=== PATIENT | female | born 1935 | race Caucasian/White ===

== ENCOUNTER 2021-10-17 11:26 | Inpatient (IN) | payer MEDICARE, OTHER, MEDICAID ==
[2021-10-17] MEDS ORDERED: Albuterol 0.083% 2.5 MG/3 ML Neb Soln INH ONE (12:30)
[2021-10-17] MEDS ORDERED: Ondansetron 4 MG Tab.DIS PO PRN (13:47)
[2021-10-17] MEDS ORDERED: Albuterol 8 GM Inhaler INH PRN (13:47)
[2021-10-17] MEDS: Enoxaparin 40 MG/0.4 ML Syringe SUBCUT SCH (14:08)
[2021-10-17] MEDS ORDERED: cefTRIAXone 1 GM in Sodium Chloride 0.9% 50 ML IV SCH (14:45)
[2021-10-17] MEDS: cefTRIAXone 1 GM Vial IVPUSH SCH (15:00)
[2021-10-17] MEDS: tiZANidine 4 MG Tab PO PRN (16:25)
[2021-10-17] MEDS: Acetaminophen 500 MG Tab PO PRN ×2 (16:26→20:43)
[2021-10-17] MEDS: Gabapentin 100 MG Cap PO SCH ×2 (16:38→20:30)
[2021-10-17] MEDS: Albuterol/Ipratropium 3.0-0.5 MG/3 ML Neb Soln NEB PRN (16:38)
[2021-10-17] MEDS: Pantoprazole 40 MG Tab.CR PO SCH (17:10)
[2021-10-17] MEDS: Doxycycline 100 MG in Sodium Chloride 0.9% 100 ML IV SCH (17:10)
[2021-10-17] MEDS: Carvedilol 6.25 MG Tab PO SCH (17:10)
[2021-10-17] MEDS: Sodium Chloride 0.9% 10 ML Syringe FLUSH PRN (17:10)
[2021-10-17] MEDS: Aspirin 81 MG Tab.EC PO SCH (20:26)
[2021-10-17] MEDS: Melatonin 3 MG Tab PO SCH (20:26)
[2021-10-17] MEDS: Montelukast 10 MG Tab PO SCH (20:27)
[2021-10-17] MEDS: Carboxymethylcellulose Sodium 0.5% Ophth Soln 15 ML Bottle EYEBOTH SCH (20:27)
[2021-10-17] MEDS: Arformoterol 15 MCG/2 ML Neb Soln INH SCH (20:34)
[2021-10-17] MEDS: Budesonide 0.5 MG/2 ML Neb Susp INH SCH (20:45)
[2021-10-18] MEDS: Albuterol/Ipratropium 3.0-0.5 MG/3 ML Neb Soln NEB PRN ×3 (04:20→18:27)
[2021-10-18] MEDS: Arformoterol 15 MCG/2 ML Neb Soln INH SCH ×3 (05:11→20:57)
[2021-10-18] MEDS: Sodium Chloride 0.9% 10 ML Syringe FLUSH PRN ×6 (05:12→20:57)
[2021-10-18] MEDS: Doxycycline 100 MG in Sodium Chloride 0.9% 100 ML IV SCH ×2 (05:12→19:57)
[2021-10-18] MEDS: Budesonide 0.5 MG/2 ML Neb Susp INH SCH ×3 (05:20→20:58)
[2021-10-18] MEDS: Isosorbide Mononitrate 30 MG Tab.ER PO SCH (08:10)
[2021-10-18] MEDS: Ferrous Sulfate 325 MG Tab PO SCH (08:11)
[2021-10-18] MEDS: Furosemide 20 MG Tab PO SCH (08:11)
[2021-10-18] MEDS: Carvedilol 6.25 MG Tab PO SCH ×2 (08:11→18:27)
[2021-10-18] MEDS: Potassium Chloride 10 MEQ Tab.ER PO SCH (08:12)
[2021-10-18] MEDS: amLODIPine 5 MG Tab PO SCH (08:12)
[2021-10-18] MEDS: Cholecalciferol (Vitamin D3) 25 MCG Tab PO SCH (08:12)
[2021-10-18] MEDS: Lactobacillus Rhamnosus GG (Probiotic) Cap PO SCH (08:13)
[2021-10-18] MEDS: Carboxymethylcellulose Sodium 0.5% Ophth Soln 15 ML Bottle EYEBOTH SCH ×2 (08:13→20:59)
[2021-10-18] MEDS: Ascorbic Acid 500 MG Tab PO SCH (08:13)
[2021-10-18] MEDS: Sertraline 25 MG Tab PO SCH (08:14)
[2021-10-18] MEDS: Tiotropium Bromide 4 GM Inhalation Spray (2.5mcg/1 dose; 10 doses) INH SCH (08:14)
[2021-10-18] MEDS: Docusate Sodium 100 MG Cap PO SCH (08:15)
[2021-10-18] MEDS: Fluticasone NASAL Spray 16 GM Bottle NASBOTH SCH (08:15)
[2021-10-18] MEDS: Meloxicam 7.5 MG Tab PO SCH (08:16)
[2021-10-18] MEDS: Lisinopril 20 MG Tab PO SCH (08:16)
[2021-10-18] MEDS: Gabapentin 100 MG Cap PO SCH ×3 (08:20→21:01)
[2021-10-18] MEDS: Polyethylene Glycol 3350 Powder 17 GM Packet PO SCH (08:20)
[2021-10-18] MEDS: Acetaminophen 500 MG Tab PO PRN (08:41)
[2021-10-18] MEDS: Pantoprazole 40 MG Tab.CR PO SCH ×2 (11:59→18:27)
[2021-10-18] MEDS: Enoxaparin 40 MG/0.4 ML Syringe SUBCUT SCH (13:32)
[2021-10-18] MEDS: tiZANidine 4 MG Tab PO PRN (15:00)
[2021-10-18] MEDS: cefTRIAXone 1 GM Vial IVPUSH SCH (15:03)
[2021-10-18] MEDS: Aspirin 81 MG Tab.EC PO SCH (20:58)
[2021-10-18] MEDS: Melatonin 3 MG Tab PO SCH (20:58)
[2021-10-18] MEDS: Montelukast 10 MG Tab PO SCH (20:59)
[2021-10-19] MEDS: Albuterol/Ipratropium 3.0-0.5 MG/3 ML Neb Soln NEB PRN ×2 (04:04→12:02)
[2021-10-19] MEDS: Doxycycline 100 MG in Sodium Chloride 0.9% 100 ML IV SCH ×2 (05:39→17:38)
[2021-10-19] MEDS: Sodium Chloride 0.9% 10 ML Syringe FLUSH PRN ×3 (05:45→14:55)
[2021-10-19] MEDS: Arformoterol 15 MCG/2 ML Neb Soln INH SCH ×2 (06:04→20:25)
[2021-10-19] MEDS: Budesonide 0.5 MG/2 ML Neb Susp INH SCH ×2 (06:04→20:27)
[2021-10-19] MEDS: Polyethylene Glycol 3350 Powder 17 GM Packet PO SCH (08:39)
[2021-10-19] MEDS: Cholecalciferol (Vitamin D3) 25 MCG Tab PO SCH (08:40)
[2021-10-19] MEDS: Gabapentin 100 MG Cap PO SCH ×3 (08:40→20:35)
[2021-10-19] MEDS: Sertraline 25 MG Tab PO SCH (08:40)
[2021-10-19] MEDS: Potassium Chloride 10 MEQ Tab.ER PO SCH (08:41)
[2021-10-19] MEDS: Fluticasone NASAL Spray 16 GM Bottle NASBOTH SCH (08:41)
[2021-10-19] MEDS: Ferrous Sulfate 325 MG Tab PO SCH (08:41)
[2021-10-19] MEDS: Ascorbic Acid 500 MG Tab PO SCH (08:41)
[2021-10-19] MEDS: Meloxicam 7.5 MG Tab PO SCH (08:41)
[2021-10-19] MEDS: Lactobacillus Rhamnosus GG (Probiotic) Cap PO SCH (08:41)
[2021-10-19] MEDS: Furosemide 20 MG Tab PO SCH (08:41)
[2021-10-19] MEDS: Docusate Sodium 100 MG Cap PO SCH (08:41)
[2021-10-19] MEDS: Tiotropium Bromide 4 GM Inhalation Spray (2.5mcg/1 dose; 10 doses) INH SCH (08:41)
[2021-10-19] MEDS: Carboxymethylcellulose Sodium 0.5% Ophth Soln 15 ML Bottle EYEBOTH SCH ×2 (08:42→20:28)
[2021-10-19] MEDS: Carvedilol 6.25 MG Tab PO SCH ×2 (08:43→17:38)
[2021-10-19] MEDS: Isosorbide Mononitrate 30 MG Tab.ER PO SCH (08:44)
[2021-10-19] MEDS: amLODIPine 5 MG Tab PO SCH (08:44)
[2021-10-19] MEDS: Lisinopril 20 MG Tab PO SCH (08:44)
[2021-10-19] MEDS: Pantoprazole 40 MG Tab.CR PO SCH ×2 (12:02→17:38)
[2021-10-19] MEDS: cefTRIAXone 1 GM Vial IVPUSH SCH (14:55)
[2021-10-19] MEDS: Enoxaparin 40 MG/0.4 ML Syringe SUBCUT SCH (14:55)
[2021-10-19] MEDS: Melatonin 3 MG Tab PO SCH (20:26)
[2021-10-19] MEDS: Aspirin 81 MG Tab.EC PO SCH (20:26)
[2021-10-19] MEDS: Montelukast 10 MG Tab PO SCH (20:29)
[2021-10-20] MEDS: Albuterol/Ipratropium 3.0-0.5 MG/3 ML Neb Soln NEB PRN ×3 (02:14→18:18)
[2021-10-20] MEDS: Doxycycline 100 MG in Sodium Chloride 0.9% 100 ML IV SCH ×2 (06:39→17:24)
[2021-10-20] MEDS: Budesonide 0.5 MG/2 ML Neb Susp INH SCH ×2 (06:39→21:14)
[2021-10-20] MEDS: Arformoterol 15 MCG/2 ML Neb Soln INH SCH ×2 (06:39→21:14)
[2021-10-20] MEDS: Carvedilol 6.25 MG Tab PO SCH ×2 (07:56→17:22)
[2021-10-20] MEDS: Furosemide 20 MG Tab PO SCH (07:56)
[2021-10-20] MEDS: Gabapentin 100 MG Cap PO SCH ×3 (07:57→21:18)
[2021-10-20] MEDS: Sodium Chloride 0.9% 10 ML Syringe FLUSH PRN ×3 (08:02→17:29)
[2021-10-20] MEDS: Lactobacillus Rhamnosus GG (Probiotic) Cap PO SCH (08:10)
[2021-10-20] MEDS: Ferrous Sulfate 325 MG Tab PO SCH (08:10)
[2021-10-20] MEDS: Docusate Sodium 100 MG Cap PO SCH (08:10)
[2021-10-20] MEDS: Fluticasone NASAL Spray 16 GM Bottle NASBOTH SCH (08:10)
[2021-10-20] MEDS: Potassium Chloride 10 MEQ Tab.ER PO SCH (08:11)
[2021-10-20] MEDS: Isosorbide Mononitrate 30 MG Tab.ER PO SCH (08:11)
[2021-10-20] MEDS: amLODIPine 5 MG Tab PO SCH (08:12)
[2021-10-20] MEDS: Meloxicam 7.5 MG Tab PO SCH (08:12)
[2021-10-20] MEDS: Lisinopril 20 MG Tab PO SCH (08:13)
[2021-10-20] MEDS: Carboxymethylcellulose Sodium 0.5% Ophth Soln 15 ML Bottle EYEBOTH SCH ×2 (08:13→21:16)
[2021-10-20] MEDS: Ascorbic Acid 500 MG Tab PO SCH (08:14)
[2021-10-20] MEDS: Tiotropium Bromide 4 GM Inhalation Spray (2.5mcg/1 dose; 10 doses) INH SCH (08:14)
[2021-10-20] MEDS: Sertraline 25 MG Tab PO SCH (08:15)
[2021-10-20] MEDS: Cholecalciferol (Vitamin D3) 25 MCG Tab PO SCH (08:15)
[2021-10-20] MEDS ORDERED: amLODIPine 10 MG Tab PO SCH (09:00)
[2021-10-20] MEDS: Polyethylene Glycol 3350 Powder 17 GM Packet PO SCH (11:00)
[2021-10-20] MEDS: Pantoprazole 40 MG Tab.CR PO SCH ×2 (11:28→17:22)
[2021-10-20] MEDS: cefTRIAXone 1 GM Vial IVPUSH SCH (14:19)
[2021-10-20] MEDS: Enoxaparin 40 MG/0.4 ML Syringe SUBCUT SCH (14:19)
[2021-10-20] MEDS: Montelukast 10 MG Tab PO SCH (21:15)
[2021-10-20] MEDS: Aspirin 81 MG Tab.EC PO SCH (21:15)
[2021-10-20] MEDS: Melatonin 3 MG Tab PO SCH (21:15)
[2021-10-21] MEDS: Albuterol/Ipratropium 3.0-0.5 MG/3 ML Neb Soln NEB PRN ×2 (04:19→17:41)
[2021-10-21] MEDS: Sodium Chloride 0.9% 10 ML Syringe FLUSH PRN (05:50)
[2021-10-21] MEDS: Doxycycline 100 MG in Sodium Chloride 0.9% 100 ML IV SCH (05:51)
[2021-10-21] MEDS: Budesonide 0.5 MG/2 ML Neb Susp INH SCH ×2 (06:22→20:07)
[2021-10-21] MEDS: Arformoterol 15 MCG/2 ML Neb Soln INH SCH ×2 (06:22→19:59)
[2021-10-21] MEDS: Gabapentin 100 MG Cap PO SCH ×3 (07:57→20:04)
[2021-10-21] MEDS: Furosemide 20 MG Tab PO SCH (07:58)
[2021-10-21] MEDS: Carvedilol 6.25 MG Tab PO SCH ×2 (07:59→17:49)
[2021-10-21] MEDS: Docusate Sodium 100 MG Cap PO SCH (08:00)
[2021-10-21] MEDS: Ferrous Sulfate 325 MG Tab PO SCH (08:00)
[2021-10-21] MEDS: Lisinopril 20 MG Tab PO SCH (08:00)
[2021-10-21] MEDS: Meloxicam 7.5 MG Tab PO SCH (08:01)
[2021-10-21] MEDS: Potassium Chloride 10 MEQ Tab.ER PO SCH (08:02)
[2021-10-21] MEDS: Isosorbide Mononitrate 30 MG Tab.ER PO SCH (08:02)
[2021-10-21] MEDS: Fluticasone NASAL Spray 16 GM Bottle NASBOTH SCH (08:03)
[2021-10-21] MEDS: Lactobacillus Rhamnosus GG (Probiotic) Cap PO SCH (08:04)
[2021-10-21] MEDS: Tiotropium Bromide 4 GM Inhalation Spray (2.5mcg/1 dose; 10 doses) INH SCH (08:07)
[2021-10-21] MEDS: Carboxymethylcellulose Sodium 0.5% Ophth Soln 15 ML Bottle EYEBOTH SCH ×2 (08:08→20:06)
[2021-10-21] MEDS: Ascorbic Acid 500 MG Tab PO SCH (08:08)
[2021-10-21] MEDS: Cholecalciferol (Vitamin D3) 25 MCG Tab PO SCH (08:10)
[2021-10-21] MEDS: Sertraline 25 MG Tab PO SCH (08:11)
[2021-10-21] MEDS: Polyethylene Glycol 3350 Powder 17 GM Packet PO SCH ×2 (08:27→08:47)
[2021-10-21] MEDS: amLODIPine 5 MG Tab PO SCH (08:42)
[2021-10-21] MEDS: Pantoprazole 40 MG Tab.CR PO SCH ×2 (13:32→17:46)
[2021-10-21] MEDS: Enoxaparin 40 MG/0.4 ML Syringe SUBCUT SCH (13:42)
[2021-10-21] MEDS: Montelukast 10 MG Tab PO SCH (20:02)
[2021-10-21] MEDS: Melatonin 3 MG Tab PO SCH (20:03)
[2021-10-21] MEDS: Acetaminophen 500 MG Tab PO PRN (20:04)
[2021-10-21] MEDS: Cefdinir 300 MG Cap PO SCH (20:05)
[2021-10-21] MEDS: Aspirin 81 MG Tab.EC PO SCH (20:11)
[2021-10-21] MEDS: Doxycycline 100 MG Tab PO SCH (20:12)
[2021-10-22] MEDS: Albuterol/Ipratropium 3.0-0.5 MG/3 ML Neb Soln NEB PRN ×3 (02:50→18:52)
[2021-10-22] MEDS: Arformoterol 15 MCG/2 ML Neb Soln INH SCH ×2 (06:02→20:40)
[2021-10-22] MEDS: Budesonide 0.5 MG/2 ML Neb Susp INH SCH ×2 (06:02→20:40)
[2021-10-22] MEDS: Potassium Chloride 10 MEQ Tab.ER PO SCH (08:06)
[2021-10-22] MEDS: amLODIPine 5 MG Tab PO SCH (08:07)
[2021-10-22] MEDS: Tiotropium Bromide 4 GM Inhalation Spray (2.5mcg/1 dose; 10 doses) INH SCH (08:09)
[2021-10-22] MEDS: Lactobacillus Rhamnosus GG (Probiotic) Cap PO SCH (08:10)
[2021-10-22] MEDS: Lisinopril 20 MG Tab PO SCH (08:10)
[2021-10-22] MEDS: Ascorbic Acid 500 MG Tab PO SCH (08:11)
[2021-10-22] MEDS: Fluticasone NASAL Spray 16 GM Bottle NASBOTH SCH (08:11)
[2021-10-22] MEDS: Carboxymethylcellulose Sodium 0.5% Ophth Soln 15 ML Bottle EYEBOTH SCH ×2 (08:11→20:41)
[2021-10-22] MEDS: Isosorbide Mononitrate 30 MG Tab.ER PO SCH (08:11)
[2021-10-22] MEDS: Carvedilol 6.25 MG Tab PO SCH ×2 (08:12→17:54)
[2021-10-22] MEDS: Meloxicam 7.5 MG Tab PO SCH (08:16)
[2021-10-22] MEDS: Docusate Sodium 100 MG Cap PO SCH (08:16)
[2021-10-22] MEDS: Doxycycline 100 MG Tab PO SCH ×2 (08:17→20:40)
[2021-10-22] MEDS: Cefdinir 300 MG Cap PO SCH ×2 (08:17→20:40)
[2021-10-22] MEDS: Cholecalciferol (Vitamin D3) 25 MCG Tab PO SCH (08:17)
[2021-10-22] MEDS: Furosemide 20 MG Tab PO SCH (08:18)
[2021-10-22] MEDS: Sertraline 25 MG Tab PO SCH (08:18)
[2021-10-22] MEDS: Gabapentin 100 MG Cap PO SCH ×3 (08:25→20:40)
[2021-10-22] MEDS ORDERED: Furosemide 40 MG/4 ML VIAL IVPUSH ONE ×2 (08:28→14:16)
[2021-10-22] MEDS: Sodium Chloride 0.9% 10 ML Syringe FLUSH PRN ×4 (08:40→15:03)
[2021-10-22] MEDS: Polyethylene Glycol 3350 Powder 17 GM Packet PO SCH (11:49)
[2021-10-22] MEDS: Pantoprazole 40 MG Tab.CR PO SCH ×2 (12:37→17:54)
[2021-10-22] MEDS: Ferrous Sulfate 325 MG Tab PO SCH (12:37)
[2021-10-22] MEDS: Enoxaparin 40 MG/0.4 ML Syringe SUBCUT SCH (13:05)
[2021-10-22] MEDS: Montelukast 10 MG Tab PO SCH (20:40)
[2021-10-22] MEDS: Aspirin 81 MG Tab.EC PO SCH (20:40)
[2021-10-22] MEDS: Melatonin 3 MG Tab PO SCH (20:40)
[2021-10-23] MEDS: Albuterol/Ipratropium 3.0-0.5 MG/3 ML Neb Soln NEB PRN ×2 (00:55→16:57)
[2021-10-23] MEDS: Arformoterol 15 MCG/2 ML Neb Soln INH SCH ×2 (06:25→20:22)
[2021-10-23] MEDS: Budesonide 0.5 MG/2 ML Neb Susp INH SCH ×2 (06:25→20:20)
[2021-10-23] MEDS: Carvedilol 6.25 MG Tab PO SCH ×2 (08:41→18:12)
[2021-10-23] MEDS: Lactobacillus Rhamnosus GG (Probiotic) Cap PO SCH (08:43)
[2021-10-23] MEDS: amLODIPine 5 MG Tab PO SCH (08:43)
[2021-10-23] MEDS: Ascorbic Acid 500 MG Tab PO SCH (08:43)
[2021-10-23] MEDS: Docusate Sodium 100 MG Cap PO SCH (08:43)
[2021-10-23] MEDS: Cholecalciferol (Vitamin D3) 25 MCG Tab PO SCH (08:44)
[2021-10-23] MEDS: Isosorbide Mononitrate 30 MG Tab.ER PO SCH (08:44)
[2021-10-23] MEDS: Potassium Chloride 10 MEQ Tab.ER PO SCH (08:44)
[2021-10-23] MEDS: Sertraline 25 MG Tab PO SCH (08:44)
[2021-10-23] MEDS: Lisinopril 20 MG Tab PO SCH (08:44)
[2021-10-23] MEDS: Meloxicam 7.5 MG Tab PO SCH (08:45)
[2021-10-23] MEDS: Polyethylene Glycol 3350 Powder 17 GM Packet PO SCH (08:46)
[2021-10-23] MEDS: Cefdinir 300 MG Cap PO SCH ×2 (08:46→20:10)
[2021-10-23] MEDS: Carboxymethylcellulose Sodium 0.5% Ophth Soln 15 ML Bottle EYEBOTH SCH ×2 (08:49→20:08)
[2021-10-23] MEDS: Fluticasone NASAL Spray 16 GM Bottle NASBOTH SCH (08:49)
[2021-10-23] MEDS: Tiotropium Bromide 4 GM Inhalation Spray (2.5mcg/1 dose; 10 doses) INH SCH (08:50)
[2021-10-23] MEDS: Gabapentin 100 MG Cap PO SCH ×3 (08:54→20:18)
[2021-10-23] MEDS: Furosemide 20 MG Tab PO SCH (08:55)
[2021-10-23] MEDS ORDERED: Furosemide 40 MG/4 ML VIAL IVPUSH SCH (09:00)
[2021-10-23] MEDS: Doxycycline 100 MG Tab PO SCH ×2 (09:13→20:11)
[2021-10-23] MEDS: Furosemide 40 MG/4 ML VIAL IVPUSH SCH ×2 (09:23→13:47)
[2021-10-23] MEDS: Sodium Chloride 0.9% 10 ML Syringe FLUSH PRN ×2 (09:23→13:46)
[2021-10-23] MEDS: Pantoprazole 40 MG Tab.CR PO SCH ×2 (12:09→18:12)
[2021-10-23] MEDS: Ferrous Sulfate 325 MG Tab PO SCH (12:09)
[2021-10-23] MEDS: Enoxaparin 40 MG/0.4 ML Syringe SUBCUT SCH (13:41)
[2021-10-23] MEDS: Aspirin 81 MG Tab.EC PO SCH (20:10)
[2021-10-23] MEDS: Melatonin 3 MG Tab PO SCH (20:10)
[2021-10-23] MEDS: Montelukast 10 MG Tab PO SCH (20:10)
[2021-10-24] MEDS: Albuterol/Ipratropium 3.0-0.5 MG/3 ML Neb Soln NEB PRN (04:58)
[2021-10-24] MEDS: Budesonide 0.5 MG/2 ML Neb Susp INH SCH ×2 (06:20→20:55)
[2021-10-24] MEDS: Arformoterol 15 MCG/2 ML Neb Soln INH SCH ×2 (06:31→20:54)
[2021-10-24] MEDS: Cholecalciferol (Vitamin D3) 25 MCG Tab PO SCH (08:46)
[2021-10-24] MEDS: Ascorbic Acid 500 MG Tab PO SCH (08:47)
[2021-10-24] MEDS: Lactobacillus Rhamnosus GG (Probiotic) Cap PO SCH (08:47)
[2021-10-24] MEDS: Doxycycline 100 MG Tab PO SCH ×2 (08:47→20:55)
[2021-10-24] MEDS: Potassium Chloride 10 MEQ Tab.ER PO SCH (08:48)
[2021-10-24] MEDS: Sertraline 25 MG Tab PO SCH (08:49)
[2021-10-24] MEDS: Cefdinir 300 MG Cap PO SCH ×2 (08:50→20:55)
[2021-10-24] MEDS: Tiotropium Bromide 4 GM Inhalation Spray (2.5mcg/1 dose; 10 doses) INH SCH (08:51)
[2021-10-24] MEDS: Carboxymethylcellulose Sodium 0.5% Ophth Soln 15 ML Bottle EYEBOTH SCH ×2 (08:51→20:55)
[2021-10-24] MEDS: Carvedilol 6.25 MG Tab PO SCH ×2 (08:52→17:59)
[2021-10-24] MEDS: Fluticasone NASAL Spray 16 GM Bottle NASBOTH SCH (08:52)
[2021-10-24] MEDS: Docusate Sodium 100 MG Cap PO SCH (08:53)
[2021-10-24] MEDS: Isosorbide Mononitrate 30 MG Tab.ER PO SCH (08:54)
[2021-10-24] MEDS: Lisinopril 20 MG Tab PO SCH (08:55)
[2021-10-24] MEDS: Meloxicam 7.5 MG Tab PO SCH (08:56)
[2021-10-24] MEDS: Polyethylene Glycol 3350 Powder 17 GM Packet PO SCH (08:57)
[2021-10-24] MEDS ORDERED: Furosemide 40 MG/4 ML VIAL IVPUSH ONE (08:59)
[2021-10-24] MEDS ORDERED: Furosemide 40 MG Tab PO SCH (09:00)
[2021-10-24] MEDS: Gabapentin 100 MG Cap PO SCH ×3 (09:01→20:55)
[2021-10-24] MEDS: amLODIPine 5 MG Tab PO SCH (09:02)
[2021-10-24] MEDS: Sodium Chloride 0.9% 10 ML Syringe FLUSH PRN (09:28)
[2021-10-24] MEDS: Pantoprazole 40 MG Tab.CR PO SCH ×2 (12:22→17:59)
[2021-10-24] MEDS: Ferrous Sulfate 325 MG Tab PO SCH (12:22)
[2021-10-24] MEDS: Furosemide 40 MG Tab PO SCH (13:28)
[2021-10-24] MEDS: Enoxaparin 40 MG/0.4 ML Syringe SUBCUT SCH (13:34)
[2021-10-24] MEDS: Melatonin 3 MG Tab PO SCH (20:54)
[2021-10-24] MEDS: Aspirin 81 MG Tab.EC PO SCH (20:54)
[2021-10-24] MEDS: Montelukast 10 MG Tab PO SCH (20:55)
[2021-10-24] MEDS: tiZANidine 4 MG Tab PO PRN (20:58)
[2021-10-25] MEDS: Albuterol/Ipratropium 3.0-0.5 MG/3 ML Neb Soln NEB PRN (03:38)
[2021-10-25] MEDS: Budesonide 0.5 MG/2 ML Neb Susp INH SCH (06:09)
[2021-10-25] MEDS: Arformoterol 15 MCG/2 ML Neb Soln INH SCH (06:23)
[2021-10-25 08:00] VITALS: BP 172/62; PULSE 71
[2021-10-25] MEDS: Carvedilol 6.25 MG Tab PO SCH (08:02)
[2021-10-25] MEDS: Lisinopril 20 MG Tab PO SCH (08:02)
[2021-10-25] MEDS: Gabapentin 100 MG Cap PO SCH (08:02)
[2021-10-25] MEDS: Potassium Chloride 10 MEQ Tab.ER PO SCH (08:03)
[2021-10-25] MEDS: amLODIPine 5 MG Tab PO SCH (08:03)
[2021-10-25] MEDS: Isosorbide Mononitrate 30 MG Tab.ER PO SCH (08:03)
[2021-10-25] MEDS: Lactobacillus Rhamnosus GG (Probiotic) Cap PO SCH (08:03)
[2021-10-25] MEDS: Carboxymethylcellulose Sodium 0.5% Ophth Soln 15 ML Bottle EYEBOTH SCH (08:04)
[2021-10-25] MEDS: Meloxicam 7.5 MG Tab PO SCH (08:04)
[2021-10-25] MEDS: Fluticasone NASAL Spray 16 GM Bottle NASBOTH SCH (08:04)
[2021-10-25] MEDS: Polyethylene Glycol 3350 Powder 17 GM Packet PO SCH (08:05)
[2021-10-25] MEDS: Furosemide 40 MG Tab PO SCH (08:05)
[2021-10-25] MEDS: Sertraline 25 MG Tab PO SCH (08:05)
[2021-10-25] MEDS: Ascorbic Acid 500 MG Tab PO SCH (08:06)
[2021-10-25] MEDS: Tiotropium Bromide 4 GM Inhalation Spray (2.5mcg/1 dose; 10 doses) INH SCH (08:06)
[2021-10-25] MEDS: Docusate Sodium 100 MG Cap PO SCH (08:06)
[2021-10-25] MEDS: Doxycycline 100 MG Tab PO SCH (08:07)
[2021-10-25] MEDS: Cholecalciferol (Vitamin D3) 25 MCG Tab PO SCH (08:07)
[2021-10-25] MEDS: Cefdinir 300 MG Cap PO SCH (08:25)
== END 2021-10-25 09:00 | disposition swing bed (61) | DRG 193 ==
LOC: FB.MS 11:40
PROVIDERS: ADMIT Family Medicine; ATTEND Family Medicine
DX: J18.9 Pneumonia, unspecified organism (principal); I50.31 Acute diastolic (congestive) heart failure; J44.1 Chronic obstructive pulmonary disease with (acute) exacerbation; E87.1 Hypo-osmolality and hyponatremia; J44.0 Chronic obstructive pulmonary disease with (acute) lower respiratory infection; E78.5 Hyperlipidemia, unspecified; D50.9 Iron deficiency anemia, unspecified; R53.81 Other malaise; I11.0 Hypertensive heart disease with heart failure; Z66 Do not resuscitate; H54.7 Unspecified visual loss; H91.90 Unspecified hearing loss, unspecified ear; I48.91 Unspecified atrial fibrillation; I25.10 Atherosclerotic heart disease of native coronary artery without angina pectoris; E78.00 Pure hypercholesterolemia, unspecified; K44.9 Diaphragmatic hernia without obstruction or gangrene; M81.0 Age-related osteoporosis without current pathological fracture; M20.42 Other hammer toe(s) (acquired), left foot; K29.70 Gastritis, unspecified, without bleeding; M48.061 Spinal stenosis, lumbar region without neurogenic claudication; F32.A Depression, unspecified; Z96.659 Presence of unspecified artificial knee joint; K29.90 Gastroduodenitis, unspecified, without bleeding; G47.36 Sleep related hypoventilation in conditions classified elsewhere; M15.9 Polyosteoarthritis, unspecified; Z87.891 Personal history of nicotine dependence; Z87.11 Personal history of peptic ulcer disease; Z79.899 Other long term (current) drug therapy
CPT/HCPCS: 36415; 71045; 71046; 80048; 83605; 83880; 85025; 87040; 87070; 87205; 93306; 94150; 94640; 97116-GP; 97162-GP; 97166-GO; 97530-GO; 97530-GP; 97535-GO; A9270-GY; J0696; J1650; J1940; J3490; J7605; J7620

== ENCOUNTER 2021-10-25 09:00 | Inpatient (IN) | payer MEDICARE, OTHER, MEDICAID ==
[2021-10-25] MEDS ORDERED: Ondansetron 4 MG Tab.DIS PO PRN (09:15)
[2021-10-25] MEDS ORDERED: Diclofenac Sodium 1% Gel 100 GM Tube TOP PRN (09:15)
[2021-10-25] MEDS ORDERED: tiZANidine 4 MG Tab PO PRN (09:15)
[2021-10-25] MEDS ORDERED: Acetaminophen 500 MG Tab PO PRN (09:15)
[2021-10-25] MEDS ORDERED: Albuterol 8 GM Inhaler INH PRN (09:15)
[2021-10-25] MEDS ORDERED: Ketotifen 0.025% Ophth Soln 5 ML Bottle EYEBOTH PRN (09:15)
[2021-10-25] MEDS: Pantoprazole 40 MG Tab.CR PO SCH ×2 (11:51→17:51)
[2021-10-25] MEDS: Multivitamin Tab PO SCH (11:52)
[2021-10-25] MEDS: Gabapentin 100 MG Cap PO SCH ×2 (11:52→20:59)
[2021-10-25] MEDS: Carvedilol 6.25 MG Tab PO SCH (17:54)
[2021-10-25] MEDS: Budesonide 0.5 MG/2 ML Neb Susp INH SCH (20:44)
[2021-10-25] MEDS: Arformoterol 15 MCG/2 ML Neb Soln INH SCH (20:44)
[2021-10-25] MEDS: Melatonin 3 MG Tab PO SCH (20:49)
[2021-10-25] MEDS: Carboxymethylcellulose Sodium 0.5% Ophth Soln 15 ML Bottle EYEBOTH SCH (20:49)
[2021-10-25] MEDS: Doxycycline 100 MG Tab PO SCH (20:50)
[2021-10-25] MEDS: Montelukast 10 MG Tab PO SCH (20:50)
[2021-10-25] MEDS: Aspirin 81 MG Tab.EC PO SCH (20:51)
[2021-10-25] MEDS ORDERED: Triamcinolone Acetonide 0.1% Crm 80 GM Tube TOP SCH (21:00)
[2021-10-26] MEDS: Albuterol/Ipratropium 3.0-0.5 MG/3 ML Neb Soln NEB PRN ×2 (03:49→21:00)
[2021-10-26] MEDS: Budesonide 0.5 MG/2 ML Neb Susp INH SCH ×2 (06:08→21:00)
[2021-10-26] MEDS: Arformoterol 15 MCG/2 ML Neb Soln INH SCH ×2 (06:19→21:00)
[2021-10-26] MEDS ORDERED: Furosemide 20 MG Tab PO SCH (08:00)
[2021-10-26] MEDS: Meloxicam 7.5 MG Tab PO SCH (08:20)
[2021-10-26] MEDS: Carvedilol 6.25 MG Tab PO SCH ×2 (08:20→17:58)
[2021-10-26] MEDS: amLODIPine 5 MG Tab PO SCH (08:21)
[2021-10-26] MEDS: Doxycycline 100 MG Tab PO SCH ×2 (08:21→20:40)
[2021-10-26] MEDS: Potassium Chloride 10 MEQ Tab.ER PO SCH (08:21)
[2021-10-26] MEDS: Sertraline 25 MG Tab PO SCH (08:21)
[2021-10-26] MEDS: Lisinopril 20 MG Tab PO SCH (08:21)
[2021-10-26] MEDS: Cholecalciferol (Vitamin D3) 25 MCG Tab PO SCH (08:21)
[2021-10-26] MEDS: Furosemide 20 MG Tab PO SCH (08:21)
[2021-10-26] MEDS: Docusate Sodium 100 MG Cap PO SCH (08:22)
[2021-10-26] MEDS: Tiotropium Bromide 4 GM Inhalation Spray (2.5mcg/1 dose; 10 doses) INH SCH (08:22)
[2021-10-26] MEDS: Fluticasone NASAL Spray 16 GM Bottle NASBOTH SCH (08:22)
[2021-10-26] MEDS: Carboxymethylcellulose Sodium 0.5% Ophth Soln 15 ML Bottle EYEBOTH SCH ×2 (08:23→20:39)
[2021-10-26] MEDS: Isosorbide Mononitrate 30 MG Tab.ER PO SCH (08:23)
[2021-10-26] MEDS: Polyethylene Glycol 3350 Powder 17 GM Packet PO SCH (08:24)
[2021-10-26] MEDS: Gabapentin 100 MG Cap PO SCH ×3 (08:35→20:44)
[2021-10-26] MEDS ORDERED: Ketoconazole 2% Crm 30 GM Tube TOP SCH (09:00)
[2021-10-26] MEDS: Pantoprazole 40 MG Tab.CR PO SCH ×2 (12:06→17:58)
[2021-10-26] MEDS: Multivitamin Tab PO SCH (12:06)
[2021-10-26] MEDS: Ferrous Sulfate 325 MG Tab PO SCH (12:07)
[2021-10-26] MEDS: Aspirin 81 MG Tab.EC PO SCH (20:39)
[2021-10-26] MEDS: Melatonin 3 MG Tab PO SCH (20:39)
[2021-10-26] MEDS: Montelukast 10 MG Tab PO SCH (20:40)
[2021-10-26] MEDS: tiZANidine 4 MG Tab PO SCH (20:41)
[2021-10-27] MEDS: Albuterol/Ipratropium 3.0-0.5 MG/3 ML Neb Soln NEB PRN ×2 (06:06→20:31)
[2021-10-27] MEDS: Arformoterol 15 MCG/2 ML Neb Soln INH SCH ×2 (06:09→20:33)
[2021-10-27] MEDS: Budesonide 0.5 MG/2 ML Neb Susp INH SCH ×2 (06:09→20:43)
[2021-10-27] MEDS: Lisinopril 20 MG Tab PO SCH (08:00)
[2021-10-27] MEDS: amLODIPine 5 MG Tab PO SCH (08:01)
[2021-10-27] MEDS: Furosemide 20 MG Tab PO SCH (08:01)
[2021-10-27] MEDS: Docusate Sodium 100 MG Cap PO SCH (08:01)
[2021-10-27] MEDS: Gabapentin 100 MG Cap PO SCH ×3 (08:01→20:34)
[2021-10-27] MEDS: Doxycycline 100 MG Tab PO SCH (08:01)
[2021-10-27] MEDS: Meloxicam 7.5 MG Tab PO SCH (08:01)
[2021-10-27] MEDS: Cholecalciferol (Vitamin D3) 25 MCG Tab PO SCH (08:02)
[2021-10-27] MEDS: Potassium Chloride 10 MEQ Tab.ER PO SCH (08:02)
[2021-10-27] MEDS: Isosorbide Mononitrate 30 MG Tab.ER PO SCH (08:02)
[2021-10-27] MEDS: Carvedilol 6.25 MG Tab PO SCH ×2 (08:02→17:57)
[2021-10-27] MEDS: Polyethylene Glycol 3350 Powder 17 GM Packet PO SCH ×2 (08:06→08:10)
[2021-10-27] MEDS: Carboxymethylcellulose Sodium 0.5% Ophth Soln 15 ML Bottle EYEBOTH SCH ×2 (08:06→20:34)
[2021-10-27] MEDS: Sertraline 25 MG Tab PO SCH (08:06)
[2021-10-27] MEDS: Fluticasone NASAL Spray 16 GM Bottle NASBOTH SCH (08:07)
[2021-10-27] MEDS: Tiotropium Bromide 4 GM Inhalation Spray (2.5mcg/1 dose; 10 doses) INH SCH (08:07)
[2021-10-27] MEDS: tiZANidine 4 MG Tab PO SCH ×2 (08:08→20:35)
[2021-10-27] MEDS: Ferrous Sulfate 325 MG Tab PO SCH (11:56)
[2021-10-27] MEDS: Pantoprazole 40 MG Tab.CR PO SCH ×2 (11:56→17:57)
[2021-10-27] MEDS: Multivitamin Tab PO SCH (11:56)
[2021-10-27] MEDS: Aspirin 81 MG Tab.EC PO SCH (20:33)
[2021-10-27] MEDS: Melatonin 3 MG Tab PO SCH (20:34)
[2021-10-27] MEDS: Montelukast 10 MG Tab PO SCH (20:35)
[2021-10-28] MEDS: Albuterol/Ipratropium 3.0-0.5 MG/3 ML Neb Soln NEB PRN (06:20)
[2021-10-28] MEDS: Arformoterol 15 MCG/2 ML Neb Soln INH SCH ×2 (06:21→20:57)
[2021-10-28] MEDS: Budesonide 0.5 MG/2 ML Neb Susp INH SCH ×2 (06:35→20:57)
[2021-10-28] MEDS: Carvedilol 6.25 MG Tab PO SCH ×2 (08:49→17:58)
[2021-10-28] MEDS: Gabapentin 100 MG Cap PO SCH ×3 (08:49→20:56)
[2021-10-28] MEDS: Potassium Chloride 10 MEQ Tab.ER PO SCH (08:50)
[2021-10-28] MEDS: Fluticasone NASAL Spray 16 GM Bottle NASBOTH SCH (08:50)
[2021-10-28] MEDS: Cholecalciferol (Vitamin D3) 25 MCG Tab PO SCH (08:51)
[2021-10-28] MEDS: Docusate Sodium 100 MG Cap PO SCH (08:52)
[2021-10-28] MEDS: Isosorbide Mononitrate 30 MG Tab.ER PO SCH (08:52)
[2021-10-28] MEDS: amLODIPine 5 MG Tab PO SCH (08:52)
[2021-10-28] MEDS: Lisinopril 20 MG Tab PO SCH (08:53)
[2021-10-28] MEDS: Furosemide 20 MG Tab PO SCH (08:53)
[2021-10-28] MEDS: Meloxicam 7.5 MG Tab PO SCH (08:54)
[2021-10-28] MEDS: Carboxymethylcellulose Sodium 0.5% Ophth Soln 15 ML Bottle EYEBOTH SCH ×2 (08:54→20:57)
[2021-10-28] MEDS: Tiotropium Bromide 4 GM Inhalation Spray (2.5mcg/1 dose; 10 doses) INH SCH (08:55)
[2021-10-28] MEDS: tiZANidine 4 MG Tab PO SCH ×2 (08:55→20:57)
[2021-10-28] MEDS: Sertraline 25 MG Tab PO SCH (08:56)
[2021-10-28] MEDS: Polyethylene Glycol 3350 Powder 17 GM Packet PO SCH (08:57)
[2021-10-28] MEDS: Ferrous Sulfate 325 MG Tab PO SCH (12:33)
[2021-10-28] MEDS: Pantoprazole 40 MG Tab.CR PO SCH ×2 (12:33→17:58)
[2021-10-28] MEDS: Multivitamin Tab PO SCH (12:34)
[2021-10-28] MEDS: Melatonin 3 MG Tab PO SCH (20:57)
[2021-10-28] MEDS: Montelukast 10 MG Tab PO SCH (20:57)
[2021-10-28] MEDS: Aspirin 81 MG Tab.EC PO SCH (20:57)
[2021-10-29 05:54] VITALS: BP 164/75; PULSE 67
[2021-10-29] MEDS: Budesonide 0.5 MG/2 ML Neb Susp INH SCH (06:01)
[2021-10-29] MEDS: Carvedilol 6.25 MG Tab PO SCH (08:15)
[2021-10-29] MEDS: Fluticasone NASAL Spray 16 GM Bottle NASBOTH SCH (08:16)
[2021-10-29] MEDS: Docusate Sodium 100 MG Cap PO SCH (08:16)
[2021-10-29] MEDS: Isosorbide Mononitrate 30 MG Tab.ER PO SCH (08:17)
[2021-10-29] MEDS: Polyethylene Glycol 3350 Powder 17 GM Packet PO SCH ×2 (08:18→08:28)
[2021-10-29] MEDS: Potassium Chloride 10 MEQ Tab.ER PO SCH (08:18)
[2021-10-29] MEDS: Furosemide 20 MG Tab PO SCH (08:18)
[2021-10-29] MEDS: amLODIPine 5 MG Tab PO SCH (08:19)
[2021-10-29] MEDS: Meloxicam 7.5 MG Tab PO SCH (08:19)
[2021-10-29] MEDS: Lisinopril 20 MG Tab PO SCH (08:20)
[2021-10-29] MEDS: Carboxymethylcellulose Sodium 0.5% Ophth Soln 15 ML Bottle EYEBOTH SCH (08:20)
[2021-10-29] MEDS: Tiotropium Bromide 4 GM Inhalation Spray (2.5mcg/1 dose; 10 doses) INH SCH (08:20)
[2021-10-29] MEDS: Cholecalciferol (Vitamin D3) 25 MCG Tab PO SCH (08:21)
[2021-10-29] MEDS: tiZANidine 4 MG Tab PO SCH (08:21)
[2021-10-29] MEDS: Sertraline 25 MG Tab PO SCH (08:22)
[2021-10-29] MEDS: Gabapentin 100 MG Cap PO SCH (08:30)
[2021-10-29] MEDS: Arformoterol 15 MCG/2 ML Neb Soln INH SCH (08:57)
== END 2021-10-29 09:30 | disposition home health service (06) | DRG 948 ==
LOC: FB.MS 09:00
PROVIDERS: ADMIT Family Medicine; ATTEND Student in an Organized Health Care Education/Training Program
DX: R53.1 Weakness (principal); I50.42 Chronic combined systolic (congestive) and diastolic (congestive) heart failure; E78.5 Hyperlipidemia, unspecified; I11.0 Hypertensive heart disease with heart failure; K29.70 Gastritis, unspecified, without bleeding; H54.7 Unspecified visual loss; I48.91 Unspecified atrial fibrillation; I25.10 Atherosclerotic heart disease of native coronary artery without angina pectoris; E78.00 Pure hypercholesterolemia, unspecified; M81.0 Age-related osteoporosis without current pathological fracture; M48.061 Spinal stenosis, lumbar region without neurogenic claudication; F32.A Depression, unspecified; Z96.659 Presence of unspecified artificial knee joint; I27.20 Pulmonary hypertension, unspecified; I34.0 Nonrheumatic mitral (valve) insufficiency; J44.9 Chronic obstructive pulmonary disease, unspecified; D50.8 Other iron deficiency anemias; M19.91 Primary osteoarthritis, unspecified site; Z79.899 Other long term (current) drug therapy; Z88.5 Allergy status to narcotic agent; Z88.8 Allergy status to other drugs, medicaments and biological substances; Z79.82 Long term (current) use of aspirin
CPT/HCPCS: 94640; 97116-GP; 97530-GO; 97530-GP; 97535-GO; 99304; 99316; A9270-GY; J7605; J7620

== ENCOUNTER 2023-08-10 16:10 | Emergency (ER) | payer MEDICARE, OTHER, MEDICAID ==
[2023-08-10] MEDS: Albuterol/Ipratropium 3.0-0.5 MG/3 ML Neb Soln NEB ONE ×2 (16:21→16:58)
[2023-08-10] MEDS: Albuterol/Ipratropium 3.0-0.5 MG/3 ML Neb Soln ONE (16:21)
[2023-08-10] MEDS ORDERED: Sodium Chloride 0.9% 10 ML Syringe FLUSH PRN (16:26)
[2023-08-10] MEDS: methylPREDNISolone Sodium Succinate 125 MG/2 ML SDV IVPUSH ONE (16:59)
[2023-08-10] MEDS: Labetalol 20 MG/4 ML Syringe IVPUSH ONE (16:59)
[2023-08-10 17:02] LABS: HEMATOCRIT 37.7 % (34.2-48.2); HEMOGLOBIN 12.6 g/dL (11.4-15.5); MEAN CORPUSCULAR HEMOGLOBIN 31.1 pg (23.9-33.9); MEAN CORPUSCULAR HGB CONC 33.6 g/dL (31.9-34.8); MEAN CORPUSCULAR VOLUME 92.6 fL (76.7-100.5); MEAN PLATELET VOLUME 6.7 fL (7.1-12.4); PLATELET COUNT,PLT 350 x10(3)uL (151-488); RED BLOOD CELL COUNT 4.07 x10(6)uL (3.60-5.20); RED CELL DISTRIBUTION WIDTH 12.9 % (12.3-16.5); WHITE BLOOD CELL COUNT,WBC 18.3 x10-3/uL (3.0-10.3)
[2023-08-10 17:06] LABS: BLOOD UREA NITROGEN,BUN 15 mg/dL (7-18); BUN/CREATININE RATIO 21.4 (9-20); CALCIUM 9.5 mg/dL (8.6-10.2); CARBON DIOXIDE,CO2 30 mmol/L (21-32); CHLORIDE,CL 95 mmol/L (100-110); CREATININE 0.7 mg/dL (0.55-1.02); ESTIMATED GFR 83 mL/min (>60); GLUCOSE RANDOM 125 mg/dL (80-116); POTASSIUM,K 4.4 mmol/L (3.5-5.3); SODIUM,NA 133 mmol/L (135-145)
[2023-08-10 17:12] LABS: A/G RATIO 0.7; ALANINE AMINOTRANSFERASE,ALT 22 U/L (12-36); ALBUMIN 2.9 g/dL (3.2-4.6); ALKALINE PHOSPHATASE 100 IU/L (56-112); ASPARTATE AMNIOTRANSFERASE,AST 15 IU/L (5-25); BILIRUBIN TOTAL 0.5 mg/dL (0.1-1.3); PROTEIN TOTAL,TP 7.3 g/dL (6.0-8.0)
[2023-08-10 17:14] LABS: INR 1.12 (1.00-1.24); PROTHROMBIN TIME 11.5 sec (9.0-11.1)
[2023-08-10 17:16] LABS: LACTIC ACID 0.6 mmol/L (0.4-2.0)
[2023-08-10 17:18] LABS: BAND PERCENT MAN 2 % (0-6); EOSINOPHILS PERCENT MAN 1 % (0-5); LYMPHOCYTES PERCENT MAN 9 % (13-37); MONOCYTES PERCENT MAN 4 % (4-12); SEG NEUTROPHILS PERCENT MAN 84 % (46-82)
[2023-08-10 17:20] LABS: TROPONIN I 9.7 pg/mL (4.0-60.3)
[2023-08-10 17:45] LABS: INFLUENZA A NAA NEGATIVE (NEGATIVE); INFLUENZA B NAA NEGATIVE (NEGATIVE)
[2023-08-10 17:50] VITALS: BP 174/63; PULSE 77
[2023-08-10] MEDS: Amoxicillin/Clavulanate K 875-125 MG Tab PO ONE (17:55)
[2023-08-10] MEDS: amLODIPine 5 MG Tab PO ONE (17:55)
[2023-08-10 18:01] LABS: CORONAVIRUS COVID-19 NAA NEGATIVE (NEGATIVE)
[2023-08-10] MEDS ORDERED: amLODIPine 10 MG Tab PO SCH (21:00)
== END 2023-08-10 18:37 | disposition home or self-care (01) ==
LOC: FB.ED 16:10
DX: J18.9 Pneumonia, unspecified organism (principal); I16.9 Hypertensive crisis, unspecified; I10 Essential (primary) hypertension; J44.1 Chronic obstructive pulmonary disease with (acute) exacerbation; I25.10 Atherosclerotic heart disease of native coronary artery without angina pectoris; Z88.8 Allergy status to other drugs, medicaments and biological substances; Z91.048 Other nonmedicinal substance allergy status; Z79.82 Long term (current) use of aspirin; Z79.899 Other long term (current) drug therapy
CPT/HCPCS: 0240U; 36415; 71045; 80053; 83605; 83880; 84484; 85025; 85610; 85730; 93005; 93010; 94640; 96374; 99284; 99284-25; A9270-GY; J1920; J2930; J7620